=== PATIENT | female | born 1935 | race Caucasian/White ===

== ENCOUNTER 2023-01-07 10:43 | Emergency (ER) | payer MEDICARE ==
[~2023-01-07] VITALS: Ht 165.1 cm; Wt 120.0 kg
[2023-01-07] MEDS ORDERED: morphine 10mg/ml inj. IM ONE (12:45)
[2023-01-07] MEDS ORDERED: HYDROcodone/acetaminophen 10/325mg tab PO ONE (12:45)
[2023-01-07] MEDS ORDERED: bacitracin 15gm ointment TP ONE (14:10)
[2023-01-07] MEDS ORDERED: LIDOcaine 1% W/epiNEPHrine 1:100,000 20ml vial IJ ONE (14:10)
[2023-01-07] MEDS ORDERED: CEPH-585 PO (15:39)
== END 2023-01-07 15:46 | disposition home or self-care (01) ==
LOC: ER 10:43
DX: S51.012A Laceration without foreign body of left elbow, initial encounter (principal); S60.212A Contusion of left wrist, initial encounter; S80.12XA Contusion of left lower leg, initial encounter; M54.9 Dorsalgia, unspecified; X58.XXXA Exposure to other specified factors, initial encounter; Y92.89 Other specified places as the place of occurrence of the external cause; Y93.89 Activity, other specified; Y99.8 Other external cause status
CPT/HCPCS: 12004; 72100; 73080; 73110; 73590; 99284; A6222; A6223; A6258; A6446

== ENCOUNTER 2023-01-14 14:22 | Emergency (ER) | payer MEDICARE ==
[~2023-01-14] VITALS: Ht 167.6 cm; Wt 90.5 kg
[~2023-01-14 14:22] MED LIST: CEPH-585 PO
== END 2023-01-14 15:25 | disposition home or self-care (01) ==
LOC: ER 14:23
DX: Z48.02 Encounter for removal of sutures (principal)
CPT/HCPCS: 99284

== ENCOUNTER 2023-11-28 10:27 | Emergency (ER) | payer MEDICARE, OTHER ==
[2023-11-28 10:54] VITALS: PULSE 77; RESP 18; TEMP 98.5; O2SAT 97
== END 2023-11-28 12:20 | disposition home or self-care (01) ==
LOC: ER 10:28
DX: S80.12XA Contusion of left lower leg, initial encounter (principal); X58.XXXA Exposure to other specified factors, initial encounter; Y93.89 Activity, other specified; Y92.89 Other specified places as the place of occurrence of the external cause; Y99.8 Other external cause status
CPT/HCPCS: 99281

== ENCOUNTER 2024-01-22 08:31 | Emergency (ER) | payer OTHER ==
[~2024-01-22] VITALS: Ht 160 cm; Wt 90.9 kg
[2024-01-22 08:34] VITALS: BP 208/89; PULSE 72; RESP 16; TEMP 98.1; O2SAT 95
[2024-01-22] MEDS: bacitracin 15gm ointment TP ONE (10:07)
== END 2024-01-22 11:07 | disposition home or self-care (01) ==
LOC: ER 08:31
DX: S80.922A Unspecified superficial injury of left lower leg, initial encounter (principal); X58.XXXA Exposure to other specified factors, initial encounter; Y93.89 Activity, other specified; Y92.89 Other specified places as the place of occurrence of the external cause; Y99.8 Other external cause status
CPT/HCPCS: 99282; A6222; A6402

== ENCOUNTER 2024-02-25 12:51 | Emergency (ER) | payer OTHER ==
[~2024-02-25] VITALS: Ht 160 cm; Wt 77.3 kg
[2024-02-25 13:26] LABS: BILIRUBIN,URINE NEGATIVE (Neg); CLARITY,URINE CLOUDY (Clear); COLOR,URINE YELLOW (Yellow); GLUCOSE, URINE NEGATIVE (Neg); KETONES,URINE NEGATIVE (Neg); LEUKOCYTE ESTERASE ,URINE LARGE (Neg); NITRITES, URINE POSITIVE (Neg); OCCULT BLOOD,URINE LARGE (Neg); PROTEIN,URINE 100 mg/dl (Neg); UROBILINOGEN,URINE 0.2 E.U/dL (0.2-1.0)
[2024-02-25 13:34] LABS: UA COLLECTION TYPE CLN CATCH MIDSTREAM
[2024-02-25 13:35] LABS: SQUAMOUS EPITHELIAL CELL,UR FEW /LPF (FEW)
[2024-02-25 13:36] LABS: BACTERIA,URINE 4+ /HPF (Neg); WBC CLUMPS,URINE MANY /HPF (NEGATIVE); WBC,URINE TNTC /HPF (0-4)
[2024-02-25] MEDS ORDERED: NITR100C6 PO (13:56)
[2024-02-25 14:16] VITALS: BP 188/67; PULSE 67; RESP 15; TEMP 98.1; O2SAT 97
== END 2024-02-25 14:25 | disposition home or self-care (01) ==
LOC: ER 12:52
DX: N39.0 Urinary tract infection, site not specified (principal); Z91.041 Radiographic dye allergy status; Z88.2 Allergy status to sulfonamides; Z79.899 Other long term (current) drug therapy
CPT/HCPCS: 81001; 87077; 87088; 87186; 99284

== ENCOUNTER 2024-03-09 10:24 | Emergency (ER) | payer OTHER ==
[~2024-03-09] VITALS: Ht 162.6 cm; Wt 90.9 kg
[~2024-03-09 10:24] MED LIST changes: -CEPH-585 PO; +NITR100C6 PO
[2024-03-09 10:27] VITALS: BP 177/74; PULSE 79; RESP 18; O2SAT 95
[2024-03-09 11:20] LABS: BILIRUBIN,URINE NEGATIVE (Neg); CLARITY,URINE CLOUDY (Clear); COLOR,URINE YELLOW (Yellow); GLUCOSE, URINE NEGATIVE (Neg); KETONES,URINE NEGATIVE (Neg); LEUKOCYTE ESTERASE ,URINE LARGE (Neg); NITRITES, URINE POSITIVE (Neg); OCCULT BLOOD,URINE LARGE (Neg); PH,URINE 5.5 (4.8-8.0); PROTEIN,URINE NEGATIVE (Neg); UROBILINOGEN,URINE 0.2 E.U/dL (0.2-1.0)
[2024-03-09 11:39] LABS: UA COLLECTION TYPE VOIDED
[2024-03-09 11:40] LABS: MUCUS STRANDS FEW /LPF (Neg); SQUAMOUS EPITHELIAL CELL,UR FEW /LPF (FEW)
[2024-03-09 11:41] LABS: TRANSITIONAL EPI CELLS,URINE FEW /HPF; WBC CLUMPS,URINE MANY /HPF (NEGATIVE)
[2024-03-09 11:42] LABS: BASOPHILS # (AUTO) 0.1 X10'3 (0-0.2); BASOPHILS % (AUTO) 0.7 % (0-1); EOSINOPHILS # (AUTO) 1.7 X10'3 (0-0.9); EOSINOPHILS % (AUTO) 19.1 % (0-6); HEMOGLOBIN 12.5 g/dl (12.0-16.0); LYMPHOCYTES # (AUTO) 1.8 X10'3 (1.1-4.8); LYMPHOCYTES % (AUTO) 19.9 % (21-51); MEAN CORPUSCULAR HEMOGLOBIN 28.1 PG (27.0-31.0); MEAN CORPUSCULAR HGB CONC 32.2 g/dL (33.0-36.5); MEAN CORPUSCULAR VOLUME 87.4 FL (78-98); MEAN PLATELET VOLUME 7.5 FL (7.4-10.4); MONOCYTES # (AUTO) 0.8 X10'3 (0-0.9); MONOCYTES % (AUTO) 8.3 % (2-12); NEUTROPHILS # (AUTO) 4.8 X10'3 (1.8-7.7); PLATELET COUNT 269 X10'3 (140-440); RED BLOOD COUNT 4.47 X10'6 (4.20-5.60); RED CELL DISTRIBUTION WIDTH 16.2 % (11.5-14.5); WHITE BLOOD COUNT 9.1 X10'3 (4.5-11.0)
[2024-03-09 11:42] LABS: BACTERIA,URINE 2+ /HPF (Neg); RBC,URINE TNTC /HPF (0-2); WBC,URINE TNTC /HPF (0-4)
[2024-03-09 11:54] LABS: ALANINE AMINOTRANSFERASE 18 U/L (12-78); ALBUMIN 3.2 G/DL (3.4-5.0); ALBUMIN/GLOBULIN RATIO 0.7 (1.1-1.5); ALKALINE PHOSPHATASE 107 IU/L (46-116); ANION GAP 7 (8-16); ASPARTATE AMINO TRANSFERASE 11 U/L (10-37); BILIRUBIN,TOTAL 0.3 MG/DL (0.1-1.0); BLOOD UREA NITROGEN 27 MG/DL (7-18); BUN/CREATININE RATIO 20.1 (10.0-20.0); CALCIUM 9.4 MG/DL (8.5-10.1); CHLORIDE 103 MMOL/L (99-107); CREATININE 1.34 MG/DL (0.40-0.90); GLUCOSE 135 MG/DL (70-104); POTASSIUM 4.1 MMOL/L (3.5-5.1); SODIUM 139 MMOL/L (135-145); TOTAL CARBON DIOXIDE 29.1 MMOL/L (24-32); TOTAL PROTEIN 7.8 G/DL (6.4-8.2); eCRCL 25 ML/MIN; eGFR 37 ML/MIN
[2024-03-09] MEDS ORDERED: CEPH-585 PO (12:03)
[2024-03-09] MEDS: CefTRIAXone 1000mg IM Kit (w/lidocaine diluent) IM ONE (12:07)
[2024-03-09 12:22] VITALS: TEMP 97.3
== END 2024-03-09 12:24 | disposition home or self-care (01) ==
LOC: ER 10:25
DX: N39.0 Urinary tract infection, site not specified (principal); Z88.2 Allergy status to sulfonamides; Z91.041 Radiographic dye allergy status; Z79.899 Other long term (current) drug therapy
CPT/HCPCS: 36415; 80053; 81001; 85025; 87088; 87186; 96372; 99283; J0696; 87077

== ENCOUNTER 2024-03-15 08:56 | Emergency (ER) | payer OTHER ==
[~2024-03-15] VITALS: Ht 167.6 cm; Wt 86.4 kg
[~2024-03-15 08:56] MED LIST changes: +CEPH-585 PO
[2024-03-15 09:33] VITALS: BP 143/77; PULSE 89; TEMP 97; O2SAT 95
[2024-03-15 09:41] VITALS: RESP 18
[2024-03-15] MEDS ORDERED: LEVO250T74 PO (09:41)
== END 2024-03-15 10:14 | disposition home or self-care (01) ==
LOC: ER 08:56
DX: N39.0 Urinary tract infection, site not specified (principal); Z88.1 Allergy status to other antibiotic agents; Z88.8 Allergy status to other drugs, medicaments and biological substances; Z91.041 Radiographic dye allergy status; Z88.2 Allergy status to sulfonamides; Z79.2 Long term (current) use of antibiotics; Z79.899 Other long term (current) drug therapy
CPT/HCPCS: 99284

== ENCOUNTER 2024-03-28 15:15 | Emergency (ER) | payer OTHER ==
[~2024-03-28] VITALS: Ht 160 cm; Wt 91.4 kg
[2024-03-28 17:29] LABS: BILIRUBIN,URINE NEGATIVE (Neg); CLARITY,URINE CLOUDY (Clear); COLOR,URINE YELLOW (Yellow); GLUCOSE, URINE NEGATIVE (Neg); KETONES,URINE NEGATIVE (Neg); LEUKOCYTE ESTERASE ,URINE SMALL (Neg); NITRITES, URINE NEGATIVE (Neg); OCCULT BLOOD,URINE NEGATIVE (Neg); PROTEIN,URINE NEGATIVE (Neg); UROBILINOGEN,URINE 0.2 E.U/dL (0.2-1.0)
[2024-03-28 17:35] LABS: UA COLLECTION TYPE CLN CATCH MIDSTREAM
[2024-03-28 17:36] LABS: SQUAMOUS EPITHELIAL CELL,UR MODERATE /LPF (FEW)
[2024-03-28 17:38] LABS: BACTERIA,URINE 1+ /HPF (Neg); RBC,URINE 0-2 /HPF (0-2)
[2024-03-28 18:08] VITALS: BP 197/96; PULSE 63; RESP 14; TEMP 97.6; O2SAT 98
== END 2024-03-28 18:10 | disposition home or self-care (01) ==
LOC: ER 15:16
DX: N39.0 Urinary tract infection, site not specified (principal); Z88.1 Allergy status to other antibiotic agents; Z91.041 Radiographic dye allergy status; Z88.8 Allergy status to other drugs, medicaments and biological substances; Z79.2 Long term (current) use of antibiotics; Z79.899 Other long term (current) drug therapy
CPT/HCPCS: 81001; 87088; 99283